=== PATIENT | female | born 1970 | race Caucasian/White ===

== ENCOUNTER 2024-09-14 08:28 | Outpatient (REF) | payer OTHER, SELFPAY ==
--- OUTSIDE RECORDS SUMMARY | 2024-09-14 08:33 | XMS_ITS | Patient Health Record ---
Author Organization [facility] Address [address] [place] [address] Reason For Referral No Information Plan Of Treatment No Information Insurance Providers Payer Name Payer Address Payer Phone Subscriber Number Group Number Insured Name Patient Relationship to Insured Coverage Start Date Coverage End Date Cigna [address] [place] [address] [id number] Dede Reed Self - patient is the insured
--- OUTSIDE RECORDS SUMMARY | 2024-09-14 08:33 | XMS_ITS | Data Portability ---
Author Organization [facility], [facility] Address [address] [place] [address] Care Team Providers Care Hall Porter Name Role Phone ANMOL SALAZAR Primary Care Provider Assessment Encounter Date Assessment Date Assessment LastModified by Organization Details LastModified Time 12/15/2022 12/15/2022 After a discussion of treatment options, which included consideration of best practices and patient preferences, the following treatment plan and objectives were adopted: [email or web address] Not available 12/15/2022 11:15:01 Plan of Treatment Reminders Order Date Submit Date Provider Last Modified By Organization Details Last Modified Time Details Appointments Follo w Up, 15 2024 09:30A M LAINE ARGUETA PA-C Not available Not available Not available Mammo Antoni dennison 2024 03:00P M [facility] Not available Not available Not available Medic al Manag ement 15 2025 03:00P M ANMOL SALAZAR NP Not available Not available Not available Lab FSH (foll icle- stimu latin g hormo ne), serum 2024 025 [facility], [place], [address], 09/10/2024 14:26:50 estra diol, serum 2024 025 [id number] [facility], [place], [address], 09/10/2024 14:26:58 lh (lute inizi ng hormo ne), serum 2024 025 [facility], [address] [facility], [place], [address], 07/31/2024 11:51:24 fecal occul t blood , immun oassa y, stool 2024 025 [facility], [address] [place] [address], [address], 07/31/2024 11:51:23 lipid panel , serum [address] [facility], [address] [place] [address] [place], [address], 09/10/2024 14:26:12 CMP, serum or plasm a [address] [facility], [address] [place] [address] [place], [address], 09/10/2024 14:26:30 HbA1c (hemo globi n A1c), blood [address] [facility], [address] [place] [address] [place], [address], 09/10/2024 14:26:39 drug scree n, urine - urine - caris oprod oL - last dose: 01/08 last dose time: 1:45p m 2023 024 [facility], [address] [place] [address], [address], 01/10/2024 10:33:59 drug scree n, urine - Date and Time of Last Dose: 2023 024 [facility], [address] [place] [place] [address], [address], 07/28/2023 12:48:32 fecal occul t blood , immun oassa y, stool [facility]23 [facility] [address] [place] [address], [address], 07/20/2024 09:26:53 drug scree n, urine - Time and Date of Last Dose: 12/15 @ 9:35a m 2022 023 [facility], [address] [place] [address], [address], 12/16/2022 12:49:30 caris oprod ol, quali tativ e, urine - temp 96 last dose caris oprod ol 10:30 AM 2022 023 [facility], [address] [place] [address], [address], 12/19/2022 09:03:40 Referral None recor ded. Procedures None recor ded. Surgeries None recor ded. Imaging None recor ded. Medication Orders estra diol 0.025 mg/24 hr semiw eekly trans derma l patch 2024 025 [id number] [id number], [address] [place], [address], 08/17/2024 15:19:08 prome thazi ne 25 mg table t 2023 024 [id number], [address] [place], [address], 01/09/2024 15:13:18 caris oprod ol 350 mg table t 2023 024 [id number] [id number], [address] [place], [address], 07/26/2024 19:34:23 caris oprod ol 350 mg table t 2022 023 [id number] [id number], [address] [place], [address], 07/26/2024 19:34:24 Patient TargetsNo targets recorded. Patient Instructions Encounter Date Encounter Id Patient Instructions Last Modified By Organization Details Last Modified Time 07/22/2023 [id number] My Health To Do List Specific Analgesia Plan: Continue present regimen Specific Goals for next visit increase exerciseThe patient is currently at their goal of safe, stable use of narcotic pain medication to improve their functioning in life. Since the last visit there has been no activity of concern: Patient today is at low risk for abuse of meds. Monitoring will include repeat UDS. Patients current goals of more activity were discussed with patient, unlikelihood of 100% reduction in pain made clear. Patient has read narcotics contract and understands the properties of narcotic medication. [email or web address] Not available 07/22/2023 14:16:24 01/09/2024 [id number] My Health To Do List Specific Analgesia Plan: Continue present regimen Specific Goals for next visit increase exerciseThe patient is currently at their goal of safe, stable use of narcotic pain medication to improve their functioning in life. Since the last visit there has been no activity of concern: Patient today is at low risk for abuse of meds. Monitoring will include repeat UDS. Patients current goals of more activity were discussed with patient, unlikelihood of 100% reduction in pain made clear. Patient has read narcotics contract and understands the properties of narcotic medication. [email or web address] Not available 12/22/2023 16:08:20 Reason for Referral None Reported. Results Created Date Observation Date Name Description Value Unit Range Abnormal Flag Note LastModifiedBy Organization Detail LastModifiedTime 12/16/1912/16/2022 DRUG MONIT OR, METHA DONE METAB , W/CON F, URINE methadone metabolite NEGATI VE NG/mL <100 normal Not Available [facility] [address] [place], [address], 12/16/2022 07:12:41 12/16/1912/16/2022 DRUG MONIT ORING TEMPL ATE notes and comments This drug testi ng is for medic al treat ment only. Ihsan sis was perfo rmed as non-f orens ic testi ng and these resul ts shoul d be used only by healt hcare provi ders to rende r diagn osis or treat ment, or to monit or progr ess of medic al condi tions . Healt herbert Provi ders needi ng Inter preta tion abhishekkusum du[place] us at 1.877 .40.R XTOX (1.87 [phone] ) M-F, 8am to 10pm EST Not Available [facility] [address] [place] [address], [place], [address], 12/16/2022 07:12:41 12/16/1912/16/2022 DRUG SCREE N-8, URINE , WITH CONFI RMATI ON GC/MS amphetamine NEG. negati ve Not Available [address], [address], 12/16/2022 12:49:30 12/16/1912/16/2022 DRUG SCREE N-8, URINE , WITH CONFI RMATI ON GC/MS barbiturates NEG. negati ve Not Available [address], [address], 12/16/2022 12:49:30 12/16/1912/16/2022 DRUG SCREE N-8, URINE , WITH CONFI RMATI ON GC/MS benzodiazepi ne NEG. negati ve Not Available [address], [address], 12/16/2022 12:49:30 12/16/1912/16/2022 DRUG SCREE N-8, URINE , WITH CONFI RMATI ON GC/MS cocaine NEG. negati ve Not Available [address], [address], 12/16/2022 12:49:30 12/16/1912/16/2022 DRUG SCREE N-8, URINE , WITH CONFI RMATI ON GC/MS opiates NEG. negati ve Not Available [address], [address], 12/16/2022 12:49:30 12/16/19 23 12/16/2022 DRUG SCREE N-8, URINE , WITH CONFI RMATI ON GC/MS fentanyl NEG. negati ve Syva EMIT II Limit s of Detec tion (cutt -off value s) Jose Expan d: Amphe tamin es: 1000 ng/ml Opiat es: 300 ng/ml Sara tuate s: 200 ng/ml Oxyco done 100 ng/ml Benzo diaze pines : 200 ng/ml Metha done 300 ng/ml Cocai ne: 300 ng/ml Fenta nyl 1 ng/ml Not Available [address], [address], 12/16/2022 12:49:30 12/16/1912/16/2022 DRUG SCREE N-8, URINE , WITH CONFI RMATI ON GC/MS oxycodone NEG. negati ve Not Available [address], [address], 12/16/2022 12:49:30 12/16/19 23 12/19/2022 DRUG TOX MONIT ORING CARIS OPROD OL MET, QN U meprobamate >22590 NG/mL <1000 high See Note 1 Not Available [facility] [address], [address], 12/19/2022 09:03:40 12/16/1912/19/2022 DRUG TOX MONIT ORING CARIS OPROD OL MET, QN U Unknown Analyte See Note 2 Note 1 This test was devel oped and its ihsan tical perfo rmanc e toni cteri stics have been deter mined by [facility]. It has not been clear ed or appro ameena by the FDA. This assay has been valid ated pursu ant to the CLIA regul ation s and is used for clini alonso purpo ses. Note 2 This drug testi ng is for medic al treat ment only. Ihsan sis was perfo rmed as non-f orens ic testi ng and these resul ts shoul d be used only by healt hcare provi ders to rende r diagn osis or treat ment, or to monit or progr ess of medic al condi tions . For abhishek chase with inter preti ng these drug resul ts, pleas e conta ct a [facility] Toxic ology Speci alist : 1-877 -40-R X TOX ( [phone] ), M-F, 8am-6 pm EST. Not Available [facility] [address] [place] [address], [place], [address], 12/19/2022 09:03:40 07/22/19 24 07/28/2023 DRUG SCREE N-8, URINE , WITH CONFI RMATI ON GC/MS amphetamine NEG. negati ve Not Available [address], [address], 07/28/2023 12:48:32 07/22/19 24 07/28/2023 DRUG SCREE N-8, URINE , WITH CONFI RMATI ON GC/MS barbiturates NEG. negati ve Not Available [address], [address], 07/28/2023 12:48:32 07/22/19 24 07/28/2023 DRUG SCREE N-8, URINE , WITH CONFI RMATI ON GC/MS benzodiazepi ne NEG. negati ve Not Available [address], [address], 07/28/2023 12:48:32 07/22/19 24 07/28/2023 DRUG SCREE N-8, URINE , WITH CONFI RMATI ON GC/MS cocaine NEG. negati ve Not Available [address], [address], 07/28/2023 12:48:32 07/22/19 24 07/28/2023 DRUG SCREE N-8, URINE , WITH CONFI RMATI ON GC/MS opiates NEG. negati ve Not Available [address], [address], 07/28/2023 12:48:32 07/22/19 24 07/28/2023 DRUG SCREE N-8, URINE , WITH CONFI RMATI ON GC/MS methadone NEG. negati ve Not Available [address], [address], 07/28/2023 12:48:32 07/22/19 24 07/28/2023 DRUG SCREE N-8, URINE , WITH CONFI RMATI ON GC/MS fentanyl NEG. negati ve Syva EMIT II Limit s of Detec tion (cutt -off value s) Door Expan d: Amphe tamin es: 1000 ng/ml Opiat es: 300 ng/ml Sara tuate s: 200 ng/ml Oxyco done 100 ng/ml Benzo diaze pines : 200 ng/ml Metha done 300 ng/ml Cocai ne: 300 ng/ml Fenta nyl 1 ng/ml Not Available [address], [address], 07/28/2023 12:48:32 07/22/19 24 07/28/2023 DRUG SCREE N-8, URINE , WITH CONFI RMATI ON GC/MS oxycodone NEG. negati ve Not Available [address], [address], 07/28/2023 12:48:32 01/09/20 24 01/10/2024 DRUG SCREE N-8, URINE , WITH CONFI RMATI ON GC/MS amphetamine NEG. negati ve Not Available [address], [address], 01/10/2024 10:33:59 01/09/20 24 01/10/2024 DRUG SCREE N-8, URINE , WITH CONFI RMATI ON GC/MS barbiturates NEG. negati ve Not Available [address], [address], 01/10/2024 10:33:59 01/09/20 24 01/10/2024 DRUG SCREE N-8, URINE , WITH CONFI RMATI ON GC/MS benzodiazepi ne NEG. negati ve Not Available [address], [address], 01/10/2024 10:33:59 01/09/20 24 01/10/2024 DRUG SCREE N-8, URINE , WITH CONFI RMATI ON GC/MS cocaine NEG. negati ve Not Available [address], [address], 01/10/2024 10:33:59 01/09/20 24 01/10/2024 DRUG SCREE N-8, URINE , WITH CONFI RMATI ON GC/MS opiates NEG. negati ve Not Available [address], [address], 01/10/2024 10:33:59 01/09/20 24 01/10/2024 DRUG SCREE N-8, URINE , WITH CONFI RMATI ON GC/MS methadone NEG. negati ve Not Available [address], [address], 01/10/2024 10:33:59 01/09/20 24 01/10/2024 DRUG SCREE N-8, URINE , WITH CONFI RMATI ON GC/MS fentanyl NEG. negati ve Syva EMIT II Limit s of Detec tion (cutt -off value s) Door Expan d: Amphe tamin es: 1000 ng/ml Opiat es: 300 ng/ml Sara tuate s: 200 ng/ml Oxyco done 100 ng/ml Benzo diaze pines : 200 ng/ml Metha done 300 ng/ml Cocai ne: 300 ng/ml Fenta nyl 1 ng/ml Not Available [address], [address], 01/10/2024 10:33:59 01/09/20 24 01/10/2024 DRUG SCREE N-8, URINE , WITH CONFI RMATI ON GC/MS oxycodone NEG. negati ve Not Available Located Within [facility] [address] [facility], [place], [address], 01/10/2024 10:33:59 02/03/20 24 02/03/2024 MAMMO , scree maxime, tomos ynthe sis, bilat eral MAMMO, SCREEN , LUKE, BILAT: 024. BI-RAD S: 1 CLINIC AL: 53-yea r old Female for Bilate ral Screen ing Mammog jason. Tyrer- zick lifeti me risk of 15.2%. No person al or first- degree family histor y of breast cancer . The patien t had a prior right breast biopsy . PRIOR EXAMS: Multip le prior studie s back throug h 2017. MAMMOG SEAN TECHNI QUE: 3D mammog sean (tomos ynthes is) and 2D mammog sean (C-vie w) images are genera naya. Images review ed with a CAD system . DENSIT Y C. The breast s are hetero geneou sly dense, which may obscur e small masses . MAMMOG SEAN FINDIN GS Bilate ral: No suspic ious mass, asymme try, microc alcifi cation , or other abnorm ality seen. CONCLU SIONNo eviden ce of malign sancho. RECOMM ENDATI ONS Bilate ralAnn ual screen ing mammog sean. ADMINI STRATI VE: A lay summar y was mailed to your patien t indica ting the result s and recomm endati ons for follow -up. OVERAL L ASSESS MENT CATEGO RY BI-RAD S-1: Negati ve. The [employer] o[employer] recomm ends annual screen ing mammog sean beginn ing at age 40 for women with averag e risk of breast cancer . ELECTR ONICAL LY SIGNED : Salazar Plasencia ms, M.D. on 2023 at 04:41: 23 PM Julio César Bruno jose: Salazar Plasencia ms [facility] [address], [place], [address], 02/06/2024 08:24:08 Result Notes Documentation Provider Name and Address Organization Details Recorded Time Mammo, Screening, Tomosynthesis, Bilateral : MAMMO, SCREEN, LUKE, BILAT: 02/03/2024. BI-RADS: 1 CLINICAL: 53-year old Female for Bilateral Screening Mammogram. Tyrer-Cuzick lifetime risk of 15.2%. No personal or first-degree family history of breast cancer. The patient had a prior right breast biopsy. PRIOR EXAMS: Multiple prior studies back through 2018. MAMMOGRAPHY TECHNIQUE: 3D mammography (tomosynthesis) and 2D mammography (C-view) images are generated. Images reviewed with a CAD system. DENSITY C. The breasts are heterogeneously dense, which may obscure small masses. MAMMOGRAPHY FINDINGS Bilateral: No suspicious mass, asymmetry, microcalcification, or other abnormality seen. CONCLUSIONNo evidence of malignancy. RECOMMENDATIONS BilateralAnnual screening mammography. ADMINISTRATIVE: A lay summary was mailed to your patient indicating the results and recommendations for follow-up. OVERALL ASSESSMENT CATEGORY BI-RADS-1: Negative. The [employer] recommends annual screening mammography beginning at age 40 for women with average risk of breast cancer. ELECTRONICALLY SIGNED: Benito Tobin M.D. on 02/03/2024 at 04:41:23 PM Reading Physician: Benito Jauregui RN [facility], [facility] 02/06/2024 08:24:08 Problems Name Problem SNOMED Code Status Onset Date Resolution Date Notes Provider Name and Address Organization Details Recorded Time Lateral epicondyli tis 803101842 Completed 12/21/2010 Not Available [facility] 3 03:10:23 Herpes simplex 77492327 Active Not Available [facility] 3 18:53:40 Increased frequency of urination 394876077 Completed 12/21/2010 Not Available [facility] 3 03:10:23 Ostium secundum type atrial septal defect 665406106 Completed 12/21/2010 Not Available [facility] 3 03:10:23 Kidney stone 22285455 Active Not Available [facility] 3 18:53:40 Migraine with aura 9810624 Active Not Available [facility] 3 18:53:40 Migraine with aura 3860740 Completed 199912/21/2010 Not Available [facility] 3 03:10:23 Low back pain 727824549 Active 2000 Not Available [facility] 3 18:53:40 Sciatica 48701156 Active 2000 Not Available [facility] 3 18:53:40 Backache 634933004 Completed 200012/21/2010 Not Available [facility] 3 03:10:23 Vaginitis and vulvovagin itis Completed 200112/21/2010 Not Available [facility] 3 03:10:23 Right upper quadrant pain 187312492 Completed 200112/21/2010 Not Available [facility] 3 03:10:23 Right lower quadrant pain 836917203 Completed 200112/21/2010 Not Available [facility] 3 03:10:23 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 962133463 Active 2002 Not Available [facility] 3 18:53:40 Malaise and fatigue 508276379 Completed 200212/21/2010 Not Available [facility] 3 03:10:23 Pure hyperchole sterolemia 228814515 Completed 200212/21/2010 Not Available [facility] 3 03:10:23 Acute cystitis 38047914 Completed 200212/21/2010 Not Available [facility] 3 03:10:23 Pain of multiple joints 04787245 Completed 200212/21/2010 Not Available [facility] 3 03:10:23 Primary fibromyalg ia syndrome 94043779 Completed 200212/21/2010 Not Available [facility] 3 03:10:23 Glycosuria 28855100 Completed 200212/21/2010 Not Available [facility] 3 03:10:23 Polyuria 76792438 Completed 200212/21/2010 Not Available [facility] 3 03:10:23 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 771438555 Completed 200212/21/2010 Not Available [facility] 3 03:10:23 Benign neoplasm of skin of upper limb and shoulder Completed 200312/21/2010 Not Available [facility] 3 03:10:23 Abdominal pain 42371833 Completed 200312/21/2010 Not Available [facility] 3 03:10:23 Cyst of ovary 31387369 Completed 200312/21/2010 Not Available [facility] 3 03:10:23 Headache 89734602 Completed 200412/21/2010 Not Available [facility] 3 03:10:23 Dysmenorrh ea 158046559 Completed 200412/21/2010 Not Available [facility] 3 03:10:23 Generalize d abdominal pain 860825939 Completed 200512/21/2010 Not Available [facility] 3 03:10:23 Liver function tests outside reference range 743593281 Completed 200512/21/2010 Not Available [facility] 3 03:10:23 Epigastric pain 30422820 Completed 200512/21/2010 Not Available [facility] 3 03:10:23 Palpitatio ns 16312909 Completed 200612/21/2010 Not Available [facility] 3 03:10:23 Irregular periods 37108894 Completed 200712/21/2010 Not Available [facility] 3 03:10:23 Cystitis 52003475 Completed 200812/21/2010 Not Available [facility] 3 03:10:23 Problem Notes None recorded. Procedures Surgical History Date Name Laterality Status Provider Name and Address Organization Details Recorded Time 3 COPD Screening Questions completed Juan Luis Castañeda [facility] 02/15/2023 15:32:44 3 COPD Screening Questions completed Juan Luis Castañeda [facility] 04/28/2022 14:26:43 2 prevention-ruddy al alcohol misuse screening completed Tiera Ralph PA-C [address] [place] [address], [phone], [facility] 04/30/2021 08:03:49 0 prevention-card iovascular risk reduction counseling completed Yamel Chaves MA [facility] 01/09/2020 08:28:38 0 prevention-ruddy al alcohol misuse screening completed Yamel Chaves MA [facility] 01/09/2020 08:28:38 Imaging Results None recorded. Procedure Notes None recorded. Medical Equipment None Reported. Allergies Allergen ID Allergen Name Allergen Category Reaction Reaction Severity Criticality Documentation Date Start Date Code Code System Note Provider Name and Address Organization Details Recorded Time 03136 acetamino phen / hydrocodo ne medicatio n nausea vomiting Not available Not available Not available 07/29/2008 78852 2 RxNorm Not Available [facility] 1 06:05:20 09754 cortisone medicatio n other mild Not available 07/29/2008 2878 RxNorm Not Available [facility] 1 06:05:20 04438 morphine medicatio n nausea vomiting Not available Not available Not available 07/29/2008 7052 RxNorm Not Available [facility] 1 06:05:41 98018 acetamino phen / oxycodone medicatio n nausea vomiting Not available Not available Not available 07/29/2008 58825 3 RxNorm Not Available [facility] 1 06:05:20 983811 Compazine medicatio n other moderate Not available 06/13/201965005 6 RxNorm [place]aw Yamel Chaves MA null, [facility] 0 11:49:04 Medications Name Sig Start Date Stop Date Status Note LastModified by Organization Details LastModified Time carisoprod ol 350 mg tablet TAKE 1 TAB 4 TIMES A DAY FOR 28 DAYS 2024 active CSRP - TO FILL 5 Not Available Not Available Not Available desoximeta sone 0.05 % topical cream APPLY TO THE AFFECTED AREA DIRECTED daily 02/27 completed Not Available Not Available Not Available trazodone 50 mg tablet TAKE 1/2-1 TABLET BY MOUTH AT BEDTIME NEEDED active Not Available Not Available No t Available aspirin 325 mg tablet Take 1 tablet every day by oral route. 06/12 completed Not Available Not Available Not Available fluocinolo ne 0.01 % topical cream APPLY TO AFFECTED AREA TWICE A DAY *DO NOT USE ON FACE* active Not Available Not Available No t Available metaxalone 400 mg tablet Please specify directio ns, refills and quantity active Not Available Not Available No t Available ciprofloxa nate 250 mg tablet TAKE 1 TABLET BY MOUTH TWICE A DAY FOR 5 DAYS. 06/12 completed PRN for travel Not Available Not Available Not Available acyclovir 400 mg tablet TAKE 1 TABLET BY MOUTH TWICE A DAY active PRN Not Available Not Available No t Available promethazi ne 25 mg tablet TAKE 1 TABLET BY MOUTH TWICE A DAY NEEDED FOR 10 DAYS active Not Available Not Available No t Available omeprazole 20 mg capsule,de layed release 12/16 completed 1 daily Not Available Not Available Not Available hydroxyzin e HCl 25 mg tablet TAKE 1 TABLET BY MOUTH AT BEDTIME NEEDED FOR ANZIETY/ INSOMNIA 04/27 completed Not Available Not Available Not Available aspirin 81 mg tablet active take 1 tab QD Not Available Not Available Not Available Iophen C-NR 10 mg-100 mg/5 mL oral liquid TAKE 1 OR 2 TEASPOON S BY MOUTH EVERY 4 HOURS NEEDED FOR COUGH 03/26 completed Not Available Not Available Not Available Transderm- Scop 1 mg over 3 days transderma l patch Apply 1 patch every 72 hours by transder mal route. active Not Available Not Available No t Available sertraline 50 mg tablet 1/2 TAB PO DAILY X 1 WEEK, THEN 1 PO DAILY 2008 active Not Available Not Available Not Avai lable doxycyclin e hyclate 100 mg tablet active Not Available Not Available Not Available naproxen 500 mg tablet Take 1 tablet twice a day by oral route as needed for 14 days. 11/08 completed Not Available Not Available Not Available estradiol 0.025 mg/24 hr semiweekly transderma l patch APPLY 1 PATCH TRANSDER ROSE TWICE A WEEK 2024 active Not Available Not Available Not Avai lable Adult Low Dose Aspirin 81 mg tablet,del ayed release Take 1 tablet every day by oral route. 04/27 completed Not Available Not Available Not Available Vitamin B12 500 mcg tablet Take 1 tablet every day by oral route. active Not Available Not Available No t Available coal tar 10 % topical cream 02/27 completed Not Available Not Available Not Available Quyen's wort active take 1 tab QD Not Available Not Available Not Available Vitamin D active Uses in winter Not Available Not Available Not Available multivitam in active take 1 daily Not Available Not Available Not Available Laine 0.35 mg tablet take 1 tablet daily by oral route active Not Available Not Available No t Available Fluvirin 9595-8687 45 mcg (15 mcg x 3)/0.5 mL intramuscu lar suspension ADM 0.5ML UTD active Not Available Not Available No t Available Afluria ( PF) 45 mcg (15 mcg x 3)/0.5 mL intramuscu lar syringe TO BE ADMINIST ERED BY [employer] FOR IMMUNIZA TION active Not Available Not Available No t Available naloxone 4 mg/actuati on nasal spray ADMINIST ER 1 SPRAY INTO ONE NOSTRIL. CALL 911. REPEAT AFTER 2-3 MIN IF NO OR MINIMAL RESPONSE active Not Available Not Available No t Available Flucelvax Quad (PF) 60 mcg (15 mcg x 4)/0.5 mL IM syringe TO BE ADMINIST ERED BY [email or web address] FOR IMMUNIZA TION 06/12 completed Not Available Not Available Not Available Vitals Date Recorded Body height Body mass index (BMI) Body weight Heart rate Oxygen saturation Oxygen saturation in Arterial blood by Pulse oximetry Systolic And Diastolic Provider Name and Address Organization Details Last Updated DateTime 4 153.67 cm 22.3 kg/m2 97705.7 1 g 90 /min 99 % 99 % 122/72 mm[Hg] Diana Pinto [facility] 4 14:21:20 Date Recorded Body height Body mass index (BMI) Body weight Oxygen saturation Oxygen saturation in Arterial blood by Pulse oximetry Heart rate Systolic And Diastolic Provider Name and Address Organization Details Last Updated DateTime 5 152.4 cm 23.5 kg/m2 43129.4 8 g 98 % 98 % 78 /min 124/64 mm[Hg] Amanda Up [facility] 5 14:38:27 Date Recorded Body height Body mass index (BMI) Body weight Oxygen saturation Oxygen saturation in Arterial blood by Pulse oximetry Heart rate Systolic And Diastolic Provider Name and Address Organization Details Last Updated DateTime 3 153.67 cm 23 kg/m2 23959.0 8 g 98 % 98 % 86 /min 108/62 mm[Hg] Castillo Cedillo MA [facility] 3 11:03:03 Date Recorded Body height Body mass index (BMI) Body weight Heart rate Systolic And Diastolic Provider Name and Address Organization Details Last Updated DateTime 01/09/2024 153.67 cm 22.9 kg/m2 18865.59 g 82 /min 130/74 mm[Hg] Maryam Collins [facility] 01/09/2024 14:36:46 Date Recorded Body height Body mass index (BMI) Body weight Oxygen saturation Oxygen saturation in Arterial blood by Pulse oximetry Heart rate Systolic And Diastolic Provider Name and Address Organization Details Last Updated DateTime 3 153.67 cm 22.7 kg/m2 67232.9 g 99 % 99 % 90 /min 128/76 mm[Hg] SMOOTH Bunch [facility] 3 15:33:45 Social History Question Answer Notes LastModified by Organizat ion Details LastModified Time Tobacco Smoking Status Former Smoker Quit 1997 after 5 yrs <1ppd. Diana Pinto MA [facility] 07/22/2023 14:19:33 Do You Wear A Helmet When Biking? Yes [email or web address] Information not available 07/20/2018 What Is Your Level Of Caffeine Consumption? Moderate Information not available 11/22/2014 What Type Of Diet Are You Following? REGULAR High Fiber, Low Fat [email or web address] Information not available 07/29/2008 Education 2 Year College Information not available 11/22/2014 What Is The Highest Grade Or Level Of School You Have Completed Or The Highest Degree You Have Received? [id number] Information not available 04/27/2021 Have There Been Any Changes To Your Family Or Social Situation? No [email or web address] Information not available 07/22/2023 When Did You Quit Smoking? 16+yearssin tali [email or web address] Information not available 04/27/2021 How Many Days In The Past Year Have You Had A Heavy Drinking Consumption (4+ Female, 5+ Male)? 0 Information not available 03/26/2016 Are There Any Guns Present In Your Home? No Information not available 04/27/2021 Do You Use Insect Repellent Routinely? Yes Summer Information not available 04/27/2021 Live Alone Or With Others? With Others [email or web address] Information not available 01/14/2011 CSRP - Narcotics Yes CARISOPRODOL [email or web address] Information not available 10/16/2021 CSRP Contract Signed And Discussed Yes 10/08/2021 Information not available 10/16/2021 Patient Has Health Care Proxy Signed And In Chart Yes [email or web address] Information not available 04/03/2020 Marital Status DBA_PATCH_ [email or web address] 117 Information not available 01/14/2011 Mosquito Repellent Used Routinely Yes Information not available 11/22/2014 What Was The Date Of Your Most Recent Tobacco Screening? 07/27/2024 [email or web address] Information not available 07/27/2024 How Many Children Do You Have? 0 [email or web address]_[email or web address] Information not available 01/14/2011 What Is Your Relationship Status? Information not available 04/27/2021 Do You Use Your Seat Belt Or Car Seat Routinely? Yes Information not available 04/27/2021 Seat Belts Used Routinely Yes [email or web address] Information not available 01/14/2011 Are You Sexually Active? Yes [email or web address] Information not available 07/22/2023 Smoke Alarm In Home Yes Information not available 11/22/2014 Do You Have Smoke And Carbon Monoxide Detectors In Your Home? Yes [email or web address] Information not available 07/22/2023 Are You Passively Exposed To Smoke? No Information not available 04/27/2021 How Much Tobacco Do You Smoke? 3+ PPD Information not available 04/27/2021 General Stress Level Medium Low - Medicum Information not available 11/22/2014 Do You Use Sunscreen Routinely? Yes [email or web address] Information not available 01/14/2011 How Many Days In The Past Year Have You Consumed 4 Or More Drinks? 0 Information not available 04/27/2021 Sex: Female Functional Status Question Answer Note LastModified by Organizat ion Details LastModified Time Do you use any illicit or recreational drugs? No Information not available 04/27/2021 Do you or have you ever used any other forms of tobacco or nicotine? No Information not available 04/27/2021 What is your level of alcohol consumption? Occasional social use only [email or web address] Information not available 07/22/2023 Do you or have you ever used smokeless tobacco? Never used smokeless tobacco Information not available 04/27/2021 Are you currently employed? 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 Never used electronic cigarettes Information not available 04/27/2021 What is your exercise level? Moderate 3-4 times/wk Information not available 04/27/2021 Mental Status None recorded. Family History Nothing Reported Notes:Ischemic: paternal gra ndfather at 50. Hypertension paternal grandfather, mother. Stroke: maternal grandmother. Diabetes: maternal grandmother, MOM Cancer: paternal grandmother lung (smoker). FATHER HAD MALIGNANT MELANOMA. HAD MALIGNANT LUNG MASS REMOVED THAT WAS NOT PRIMARY LUNG. MAUNT GASTRIC CA Colon polyps none. Malignant melanoma: father. Hyperlipidemia: paternal grandfather, mother. Osteoporosis: father. Medical History No medical history recorded. Gynecological History Statement/Question Response Menses Monthly Y History of Abnormal Pap Y Date of LMP 04/08/2021 Frequency of Cycle (Q days) 21 Obstetrics History GPAL:G 0 P 0 0 0 0 Immunizations Vaccine Type Date Status Note Provider Name and Address Organization Details Recorded Time Influenza, split virus, trivalent, preservative 011 completed Not Available [facility] 03/17/2019 02:38:55 Td(adult) unspecified formulation 007 completed Not Available [facility] 01/17/2023 18:53:41 Tdap 013 completed Not Available [facility] 03/17/2019 02:32:58 pneumococcal polysaccharide PPV23 014 completed Not Available [facility] 03/17/2019 02:28:11 Influenza, split virus, trivalent, preservative 013 completed Not Available [facility] 01/17/2023 18:53:41 Influenza, split virus, trivalent, preservative 013 completed Not Available [facility] 01/17/2023 18:53:41 Influenza, split virus, quadrivalent, PF 018 completed Not Available [facility] 03/17/2019 02:28:44 Influenza, split virus, quadrivalent, PF 019 completed Not Available [facility] 03/17/2019 02:24:07 Influenza, split virus, quadrivalent, preservative 020 completed Not Available [facility] 01/17/2023 18:53:41 COVID-19, mRNA, LNP-S, PF, 100 mcg/0.5mL dose or 50 mcg/0.25mL dose 021 completed Not Available [facility] 01/17/2023 18:53:41 Td (adult), 2 Lf tetanus toxoid, preservative free, adsorbed 023 cancelled patient objection DAVID DOOLEY PA-C [address] [place] [address], [phone], [facility] 04/28/2022 21:04:08 COVID-19, mRNA, LNP-S, PF, 100 mcg/0.5mL dose or 50 mcg/0.25mL dose 021 completed Not Available [facility] 01/17/2023 18:53:41 Td (adult), 2 Lf tetanus toxoid, preservative free, adsorbed 023 completed DAVID DOOLEY PA-C [address] [place] [address], [phone], [facility] 11/12/2022 07:51:45 influenza, intradermal, quadrivalent, preservative free 021 completed Not Available [facility] 01/17/2023 18:53:41 COVID-19, mRNA, LNP-S, PF, 100 mcg/0.5mL dose or 50 mcg/0.25mL dose 021 completed Not Available [facility] 01/17/2023 18:53:41 Influenza, MDCK, quadrivalent, PF 022 completed Not Available [facility] 01/17/2023 18:53:41 COVID-19, mRNA, LNP-S, bivalent, PF, 50 mcg/0.5 mL or 25mcg/0.25 mL dose 022 completed Not Available [facility] 01/17/2023 18:53:41 zoster recombinant 024 completed SMOOTH Bunch [facility] 06/07/2023 10:10:36 COVID-19, mRNA, LNP-S, bivalent, PF, 50 mcg/0.5 mL or 25mcg/0.25 mL dose 024 [facility] 08:04:29 Influenza, MDCK, trivalent, preservative 024 completed [facility] 02/06/2024 09:51:56 Past Encounters Encounter ID Performer Location Encounter Start Date Encounter Closed Date Diagnosis/Indication Diagnosis SNOMED-CT Code Diagnosis ICD10 Code Diagnosis Note [id number] Stefany Royal MD , [facility] OFFICE [address] [place] [address] 01/28/2000 11:30:00 03/20/2008 02:02:29 [id number] Shin Moreira MD , [facility], OFFICE [address] [place] [address] 1 11/16/2000 16:45:00 03/20/2008 02:02:29 [id number] Shin Moreira MD , [facility], OFFICE [address] [place] [address] 1 11/21/2000 15:30:00 03/20/2008 02:02:29 [id number] Amanda Nettles Physical Therapy, [facility] [address] [facility] [place] [address] 11/28/2000 17:00:00 03/20/2008 02:02:29 [id number] Shin Moreira MD , [facility], OFFICE [address] [place] [address] 1 11/28/2000 15:30:00 03/20/2008 02:02:29 [id number] Amanda Nettles Physical Therapy, [facility] [address] [facility] [place] [id number] 12/05/2000 17:00:00 03/20/2008 02:02:29 [id number] Amanda Nettles Physical Therapy, [facility] [address] [place] [address] 12/07/2000 17:00:00 03/20/2008 02:02:29 [id number] Amanda Nettles Physical Therapy, [facility] [address] [place] [address] 12/12/2000 15:30:00 03/20/2008 02:02:29 [id number] Shin Moreira MD FP, [facility], OFFICE [address] [place]yn[place] [address] 12/12/2000 16:00:00 03/20/2008 02:02:29 [id number] Amanda Nettles Physical Therapy, [facility] [address] [place] [address] 01/02/2001 15:00:00 03/20/2008 02:02:29 [id number] Shin Moreira MD FP, [facility], OFFICE [address] [place] [address] 01/13/2001 15:45:00 03/20/2008 02:02:29 [id number] [facility] ULTRASOUND Technologi st Radiology , [facility] [address] [place] [address] 01/23/2001 13:30:00 03/20/2008 02:02:29 [id number] [facility] ULTRASOUND Technologi st Radiology , [address] [place] [address] 01/23/2001 12:45:00 03/20/2008 02:02:29 [id number] Amanda Nettles Physical Therapy, [facility] [address] [place] [address] 1 01/30/2001 17:30:00 03/20/2008 02:02:29 [id number] Stefany Mario FP, [facility], OFF[address] P[place]ynthia [place] [id number] 03/23/2001 15:15:00 03/20/2008 02:02:29 [id number] Stefany Royal MD , [facility], OFFICE [address] [place] [address] 10/05/2001 14:54:28 03/20/2008 02:02:29 [id number] [facility] ULTRASOUND Technologi st Radiology , [facility] [address] [place] [address] 1 10/20/2001 08:35:15 03/20/2008 02:02:29 [id number] Shin Moreira MD , [facility], OFFICE [address] [place] [address] 1 03/16/2002 16:10:25 03/20/2008 02:02:29 [id number] Shin Moreira MD , [facility], OFFICE [address] [place] [address] 04/16/2002 10:13:25 03/20/2008 02:02:29 [id number] [facility] LAB LAB - [address] [place] [address] 04/16/2002 14:15:26 03/20/2008 02:02:29 [id number] Tona De Anda MD , [facility], OFFICE [address] [place] [address] 07/26/2002 10:32:47 03/20/2008 02:02:29 [id number] [facility] - [address] [place] [address] 07/26/2002 00:00:00 03/20/2008 02:02:29 [id number] [facility] - [address] [place] [address] 11/08/2002 15:36:43 11/09/2002 12:08:24 [id number] Shin Moreira MD , [facility], OFFICE [address] [place] [address] 11/08/2002 14:47:34 11/09/2002 10:26:55 [id number] Derek Woo PA-C , [facility], OFFICE [address] [place] [address] 01/08/2003 13:00:52 01/09/2003 10:38:55 [id number] [facility] - [address] [place] [address] 01/08/2003 00:00:00 03/20/2008 02:02:29 [id number] [facility] - [address] [place] [address] 01/17/2003 07:34:33 01/17/2003 12:07:38 [id number] [facility] - [address] [place] [address] 04/12/2003 07:31:20 04/12/2003 12:56:20 [id number] MD SHANON Womack, [facility], OFFICE [address] [place] [address] 05/06/2003 15:39:30 05/07/2003 09:02:05 [id number] [facility] - [facility] [address] [place] [address] 10/28/2003 15:16:54 10/28/2003 15:58:25 [id number] MD SHANON Womack, [facility], OFFICE [address] [place] [id number] 10/28/2003 13:52:05 10/29/2003 09:25:18 [id number] [facility] ULTRASOUND Technologi st Radiology , [facility] [address] [place] [address] 12/23/2003 08:45:26 12/23/2003 11:28:43 [id number] [facility] ULTRASOUND Technologi st Radiology , [facility] [address] [place] [address] 02/18/2004 15:30:25 02/19/2004 08:13:34 [id number] MD SHANON Womack, [facility], OFFICE [address] [place] [id number] 06/26/2004 13:20:40 06/29/2004 09:19:09 [id number] SOLANGE Marks, [facility], OFFICE [address] [place] [address] 1 09/09/2004 09:36:12 09/09/2004 14:41:40 [id number] [facility] - [facility] [address] [facility] [place] [address] 09/09/2004 00:00:00 03/20/2008 02:02:29 [id number] MD SHANON Womack, [facility], OFFICE [address] [place] [address] 1 11/12/2004 14:36:18 11/13/2004 08:51:06 [id number] MD SHANON Womack, [facility], OFFICE [address] [place] [id number] 1 12/15/2004 10:08:30 12/16/2004 09:19:56 [id number] Aleah CLAUDIO, [facility], OFFICE [address] [place] [address] 1 03/04/2005 09:26:22 03/04/2005 14:59:07 [id number] [facility] RADIOLOGY Technologi Radiology , [facility] [address] [place] [address] 03/12/2005 10:26:54 03/12/2005 13:00:56 [id number] Aleah HERNANDEZ , [facility], OFFICE [address] [place] [address] 03/12/2005 09:47:10 03/12/2005 17:11:22 [id number] [facility] - [facility] [address] [place] [address] 04/27/2005 11:43:31 04/27/2005 11:43:41 [id number] Shin Moreira MD , [facility], OFFICE [address] [place]NTIVEROSBENJAMINCynthia [place] [address] 1 04/27/2005 10:09:33 04/28/2005 08:34:54 [id number] Shin Moreira MD , [facility], OFFICE [address] [place] [address] 09/29/2005 11:34:43 09/30/2005 07:51:03 [id number] Ernesto Angelo MD , [facility], OFFICE [address] [place]NTIVEROSBENJAMINCynthia [place] [address] 12/13/2005 14:28:41 12/14/2005 08:08:21 [id number] [facility] - [facility] [address] [place] [address] 12/13/2005 15:33:32 12/13/2005 15:33:54 [id number] Ernesto Angelo MD , [facility], OFFICE [address] [place]AM[place]yn[place] [address] 1 12/17/2005 13:17:14 12/20/2005 09:09:04 [id number] [facility] - [facility] [address] [place] [id number] 12/17/2005 00:00:00 03/20/2008 02:02:29 [id number] [facility] - [facility] [address] [place] [address] 12/17/2005 14:21:52 12/17/2005 14:28:32 [id number] MD SHANON Womack, [facility], OFFICE [address] [place] [id number] 05/17/2006 13:51:20 05/18/2006 07:47:36 [id number] MD SHANON Womack, [facility], OFFICE [address] [place] [address] 1 06/06/2006 16:26:15 06/07/2006 08:13:51 [id number] Shin Moreira MD , [facility], OFFICE [address] [place] [address] 1 03/28/2007 16:19:00 03/20/2008 02:02:29 [id number] [facility] - [address] [place] [address] 03/28/2007 00:00:00 03/20/2008 02:02:29 [id number] Shin Moreira MD , [facility], OFFICE [address] [place] [address] 1 07/29/2008 14:04:14 07/30/2008 10:31:34 [id number] MD SHANON Womack, [facility], OFFICE [address] [place] [address] 1 09/30/2008 15:57:36 10/02/2008 11:30:11 [id number] [facility] - [address] [place] [address] 09/30/2008 00:00:00 12/26/2008 02:00:52 [id number] [facility] - [address] [place] [address] 1 10/01/2008 07:25:53 10/07/2008 14:13:41 [id number] Antony Harrington PA-C , [facility], [address] [place] [address] 02/27/2009 09:59:47 02/27/2009 11:09:11 [id number] [facility] ULTRASOUND Technologi st Radiology , [address] [place] [address] 03/04/2009 10:41:14 03/06/2009 15:40:46 [id number] MD SHANON Womack, [facility], [address] [place] [address] 1 12/16/2009 13:17:26 12/17/2009 12:22:26 [id number] Lula Stevens, OT Physical Therapy, [address] [place] [address] 12/22/2009 16:26:32 12/23/2009 11:11:34 [id number] Lula Stevens, OT Physical Therapy, [address] [place] [address] 01/05/2010 16:36:11 01/06/2010 11:36:21 [id number] Shin Moreira MD , [facility], OFFICE [address] [place] [address] DR [place]NTIVEROSB[place]JAM[place]yn[place] [address] 12/22/2010 15:27:34 12/23/2010 09:37:50 [id number] Shin Moreira MD , [address] [place] [id number] 04/01/2011 15:36:51 04/01/2011 16:43:36 [id number] Shin Moreira MD , [facility] OFF[facility] [address] [place] [address] DR ONTIVEROSBENJAMINCynthia [place] [id number] 03/31/2012 10:33:06 03/31/2012 11:09:36 [id number] Gonzalo Henderson MD [facility] , [address] [place] [address] 03/31/2012 11:14:05 04/03/2012 09:52:27 [id number] Shin Moreira MD , [address] [place] [address] 04/10/2012 10:00:34 04/13/2012 12:15:04 [id number] Shin Moreira MD , [address] [place] [id number] 04/28/2012 13:56:46 04/28/2012 15:30:41 [id number] Shin Moreira MD , [facility], [address] [place] [address] 11/15/2013 15:11:03 11/15/2013 16:29:46 Adult health examination [id number] see Risk Assessment and Lifestyle Change Counseling section above Counseling [id number] Low back pain 490970745 Migraine with aura 6761082 Pain of sh oulder region 95567301 Administra tion of pneumococcal vaccine 13637473 [id number] Shin Moreira MD , [facility], [address] [place] [address] 12/13/2013 09:03:40 12/13/2013 09:50:41 Bronchitis 51688695 Cough 59330556 [id number] Shin Moreira MD , [address] [place] [address] 11/22/2014 14:11:10 11/22/2014 16:22:45 Adult health examination 670178667 see Risk Assessment and Lifestyle Change Counseling section above Counseling [id number] Screening mammography 35189279 Migraine with aura 1064104 [id number] Shin Moreira MD , [facility], OFFICE [address] [place] [address] 03/26/2016 15:18:25 03/29/2016 12:55:56 Adult health examination 944769285 Z00.00 see Risk Assessment and Lifestyle Change Counseling section above Counseling 263523346 Z71 .9 Abnormal c ervical Papanicolaou smear with human papillomavirus deoxyribonucleic acid detected 461019235 R87.619 Migraine with aura 76463 06 G43.109 Screening mammography 24 187536 Z12.31 Screening for malignant neoplasm of cervix 485004045 Z12.4 [id number] Shin Moreira MD , [facility], OFFICE [address] [place] [address] 04/05/2017 14:17:40 04/05/2017 15:34:50 Adult health examination 270606857 Z00.00 see Risk Assessment and Lifestyle Change Counseling section above Counseling 791582222 Z71 .9 Low back pain 558339473 M54.5 Migraine with aura 78348 06 G43.109 Active or passive immunization 115251758 Z23 Skin lesion 54041585 L98 .9 [id number] Shin Moreira MD , [facility], OFFICE [address] [place] [address] 1 07/20/2018 14:06:57 07/20/2018 15:05:45 Adult health examination 445267782 Z00.00 see Risk Assessment and Lifestyle Change Counseling section above Counseling 351486870 Z71 .9 Depression screening 171 064167 Z13.89 depression screening tool administer ed, entered into emr, scored and discussed, time greater than 7.5 minutes Abnormal c ervical Papanicolaou smear with human papillomavirus deoxyribonucleic acid detected 226677305 R87.619 Migraine with aura 37341 06 G43.109 Screening mammography 24 889614 Z12.31 [id number] Shin Moreira MD , [facility], OFFICE [address] [place] [address] 11/17/2018 14:04:46 11/17/2018 16:46:43 Active or passive immunization 079077182 Z23 [id number] JEAN CLAUDE Zaidi , [facility], OFFICE [address] [place] [address] 04/12/2019 15:04:39 04/12/2019 16:52:51 Awareness of heart beat 672088821 R00.2 EKG in office is normal, reviewed with Dr. Lainez.Du e to new onset of symptoms and hx of PFO, will send pt for echocardio gram.[place] ct she is experienci ng some PVCs.Will contact patient with results.Ca ll/RTO with any concerns. Patent foramen ovale 204 671759 Q21.1 Dx 15 years ago during work up for migraines. Was seen and evaulated by cardiology at that time. No further f/u since. [id number] Yovani Rodriguez MD , [facility], OFFICE [address] [place] [address] 06/13/2019 08:08:54 06/14/2019 15:01:57 Insomnia 559859850 G47.00 Trial of trazodone at bedtime. Reviewed R/B/A of meds. F/u 2 weeks, sooner with any concerns. Encouraged regular exercise. Stress and adjustment reaction 019001236 F43.9 Increased stress with current pandemic and trying to care for parents who are in [place] with medical issues. Will have her schedule with [facility] for additional support. Encouraged regular exercise and taking time for herself to decompress . [id number] Yovani Rodriguez MD , [facility] [place]ICE [address] [place] [address] 06/28/2019 07:45:36 06/28/2019 16:41:25 Insomnia [id number] G47.00 Trazodone felt too strong, left her groggy and with weird dreams even of half tab. Will try hydroxyzin e on a PRN basis. Work with therapist on stress management . Reviewed R/B/A of meds. F/u if no improvemen t in 2 weeks, sooner as needed. Encouraged regular exercise. Stress and adjustment reaction 335587993 F43.9 Increased stress with current pandemic and trying to care for parents who are in [facility] with medical issues. She mary get 6 free therapy sessions through work and is starting that next week. Limiting news and journaling has helped, as well as increased exercise. Encouraged regular exercise and taking time for herself to decompress . [id number] Yovani Rodriguez MD , [facility] OFFICE [address] [place] [address] 10/30/2019 08:46:21 10/30/2019 14:32:15 Palpitations 27662995 R00.2 Reviewed recent echo with patient. I suspect PVCs are what she is feeling. Will get updated labs and schedule nurse visit for holter monitor. F/u pending results. Discussed hydration, good sleep habits and limiting caffeine as well. [id number] Yovani Rodriguez MD , [facility] OFFICE [address] [place] [address] 11/12/2019 13:49:17 11/12/2019 14:36:14 Palpitations 86021784 R00.2 Reviewed recent echo with patient. I suspect PVCs are what she is feeling. Will get updated labs and schedule nurse visit for holter monitor. F/u pending results. Discussed hydration, good sleep habits and limiting caffeine as well. [id number] Yovani Rodriguez MD , [facility] OFFICE [address] [place] [address] 11/19/2019 10:25:18 11/21/2019 15:55:09 Macrocytosis - no anemia 887186263 D75.89 check labs in 1 month. Palpitations 54124752 R0 0.2 Reviewed labs and holter with patient. Discussed possibilit y of beta angela for symptomati c management . Await Dr. Ellsworth's reading of holter. Reassuranc e. Continue to stay well hydrated. Minimize caffeine and work on stress management . [id number] Yovani Rodriguez MD , [facility], OFFICE [address] [place] [address] 01/09/2020 10:39:14 01/09/2020 13:15:05 Adult health examination 922295105 Z00.00 Stable health. Continue to work on stress management , regular exercise and healthy diet. UTD on pap. Plans to get flu vaccine. Counseling 863021950 Z71 .9 including cardiovasc ular risk reduction counseling Depression screening 171 161111 Z13.89 09/23. Mood stable, increased stress with current pandemic. Feels she is managing ok. depression screening tool administer ed, entered into emr, scored and discussed, time greater than 7.5 minutes Screening for alcohol abuse 572157859 Z13.39 06/09. Encouraged to limit alcohol intake. Screening mammography 24 781466 Z12.31 Low back pain 453553349 M54.5 Chronic. On carisoprod ol. Reviewed R/B/A of long term care administrator use. Encouraged to cut back on dosing, will try to take 3x a day instead of 4x a day. Palpitations 28368336 R0 0.2 Reviewed holter results again with patient- PVCs. Discussed possibilit y of beta angela for symptomati c management , which she declines for now. Discussed hydration, quality sleep, limit caffeine and alcohol. [id number] Yovani Rodriguez MD , [facility], OFFICE [address] [place], [place] [address] 04/27/2021 13:15:26 04/27/2021 14:43:21 Adult health examination 565748525 Z00.00 Stable health. Continue to work on stress management , regular exercise and healthy diet.UTD on mammogram. Pap done today. UTD on immunizati ons Counseling 562022037 Z71 .9 Depression screening 171 430958 Z13.31 06/24 depression screening tool administer ed, entered into emr, scored and discussed, time greater than 7.5 minutes Screening for alcohol abuse 065381022 Z13.39 05/09. Screening for malignant neoplasm of colon 549019950 Z12.11 Declines colonoscop y- knows several people who have during routine colonoscop y. Willing to do stool cards. Screening for malignant neoplasm of cervix 204741962 Z12.4 Low back pain 660395402 M54.50 On penitentiary carisoprod ol. Has tried several options in the past including injections . Only med she has been able to tolerate. Encouraged to try to cut down to 3 tabs/day. Discussed not typically long term care administrator meds, however she is able to remain functional /active and working with med. Migraine with aura 37488 06 G43.109 FMLA recently completed for PRN use with dbilitatin g migraines. [id number] Janelle Iraheta . FP, [facility], OFFICE [address] [place] [address] 10/08/2021 10:21:14 10/08/2021 13:02:42 Chronic pain 21405913 R52 Pt states back pain began 2000, On penitentiary carisoprod ol.Has been able to remain functional /work with carisoprod ol 4x daily since around 2007Could not tolerate injections or other meds/opioi ds, this is the only thing pt can tolerate Discussed attempt to try to cut down to 3 tabs/day in the future, pt not ready at this time, is happy with functional statusCSRP contract signed in office today, Pt case to [facility] for enrollment and buccal swab pending [id number] Janelle Iraheta . , [facility], OFFICE [address] [place] [address] 01/14/2022 14:51:48 01/19/2022 08:35:42 Chronic pain 75066524 R52 Pt states back pain began 2000, On penitentiary carisoprod ol.Has been able to remain functional /work with carisoprod ol 4x daily since around 2007Could not tolerate injections or other meds/opioi ds, this is the only thing pt can tolerateOn CSRP, agree to q6 mo visits, pt given copy of contract as requested, has been having difficulty filling Rx at pharmacy and has to call each month and speak w/ pharmacist , asked pt to f/u w/ pharmacy about this issue, fill has been sent for 01/28/22, pt questions d/c CSRP as did not used to have this issue w/ refills, will advise if ongoing as discussed Ganglion c yst of right hand [id number] 44269 M67.441 Suspect ganglion cyst R 4th digit, also eval Dr. CARDENASt will monitor, consider hand surgeon referral if becomes bothersome [id number] Toney Art MD , [facility], [address] [place] [address] 04/23/2022 13:50:08 04/23/2022 15:33:24 Lateral epicondylitis of right humerus 7054769560 36267 M77.11 Discussed rest, activity modificati on reyna. computer mouse use, ice/heat applicatio n, and NSAID/acet aminophen dosing as needed unless contraindi cated.OOW note provided for 2 weeks.Disc ussed potential benefit of tennis elbow strap. [id number] Janelle Iraheta . , [facility], OFFICE [address] [place], [place] [address] 04/28/2022 13:49:39 04/29/2022 08:22:02 Adult health examination 241700027 Z00.00 Declines colonoscop y. Willing to do stool cards. Given todayPap UTD 03/2021Mamm o 03/2021, orderedDec lines tetanus today, will get next visit Depression screening 171 322930 Z13.31 depression screening tool administer ed, 05/24 Screening for alcohol abuse 058387060 Z13.39 Alcohol use screening tool administer ed, 04/11 Screening for malignant neoplasm of colon 412470947 Z12.11 Declines colonoscop y. Willing to do stool cards. Given today Active or passive immunization 884251526 Z23 Declines d/t current arm pain, states will get next time Lateral ep icondylitis of right humerus 5555619487 83500 M77.11 Seen in office approx 1 week ago, R arm pain ongoingly very bothersome Pt was recommende d rest/activ ity modificati on/ice/hea t, NSAID (naproxen) /acetamino phen and was given OOW note until 05/12/22Pt is starting PT on Tuesday w/ [facility]I Screening mammography 24 777126 Z12.31 Migraine with aura 91733 06 G43.109 Becoming more random/les s predictabl e? botox therapyRef er to neuro- dr torrez for options Chronic pain 83082585 R5 2 Pt states back pain began 2000, On penitentiary carisoprod ol.Has been able to remain functional /work with carisoprod ol 4x daily since around 2007Could not tolerate injections or other meds/opioi ds, this is the only thing pt can tolerateOn CSRP, continues to have difficulty filling Rx at pharmacy monthly and has to call each month and speak w/ pharmacist , request pt to f/u w/ pharmacy about this issue, pt questions d/c CSRP as did not used to have this issue w/ refills, will advise if ongoing as discussed, will need to discuss with CSRP [id number] Janelle Iraheta . MD CLAUDIO, [facility], [address] [place] [address] 05/06/2022 13:45:46 05/10/2022 13:30:24 Lateral epicondylitis of right humerus 4267054569 84995 M77.11 R arm pain ongoingly very bothersome C/t rest/activ ity modificati on/ice/hea t, NSAID (naproxen) /acetamino phen prnOOW note extended per request until session with PT on Tuesday w/ ATI, again today, c/tXray ordered to obtain due to immense pain if no improvemen t 1 weekPt will update on condition in approx 7-10 days [id number] Janelle Iraheta . , [facility], OFFICE [address] [place] [address] 11/08/2022 14:19:57 11/11/2022 07:59:07 Chronic pain 62330819 R52 Pt states back pain began 2000, On long term care administrator carisoprod ol.Has been able to remain functional /work with carisoprod ol 4x daily since around 2007Could not tolerate injections or other meds/opioi ds, this is the only thing pt can tolerateOn CSRP, UDS today Long-term current use of drug therapy 486240557 Z79.899 Active or passive immunization 046180894 Z23 Lateral ep icondylitis of right humerus 5490777686 01867 M77.11 Intermitte ntly bothersome , but no longer using naprosynst ill doing home exercises Ganglion c yst of right hand 0305155031 91858 M67.441 ResolvedR 4th digit [id number] MD SHANON Dow, [facility], OFFICE [address] [place] [address] 12/15/2022 10:47:42 12/15/2022 12:06:49 Low back pain 631908779 M54.50 On penitentiary carisoprod ol. Has tried several options in the past including injections . Only med she has been able to tolerate. Encouraged to try to cut down to 3 tabs/day. Discussed not typically long term care administrator meds, however she is able to remain functional /active and working with med. Chronic pain 73733918 R5 2 Pt states back pain began 2000, On long term care administrator carisoprod ol.Has been able to remain functional /work with carisoprod ol 4x daily since around 2007Could not tolerate injections or other meds/opioi ds, this is the only thing pt can tolerateOn CSRP.. repeat UDS today. Last test negative. Had taken meds early that morning of her visit.No other inappropri ate screens. Refilled today. F/u pending repeat UDS. Long-term current use of drug therapy 216519979 Z79.993 [id number] Yovani Rodriguez MD , [facility], OFFICE [address] [place] [address] 02/15/2023 15:24:37 02/15/2023 16:57:43 Migraine with aura 4518023 G43.109 FMLA completed for PRN use with debilitati ng migraines. Discussed option of seeing neuro for consult if symptoms/f rquency increase. [id number] Josefa Robles MD , [facility], OFFICE [address] [place] [address] 07/22/2023 14:06:11 07/22/2023 15:45:56 Adult health examination 195516142 Z00.00 -well 52 y/o F-vital signs stable-nor mal pap + neg. HPV 04/27/2021, due 2026-stool cards for colon cancer screening- mammogram 05/25/2022 New concern of L sided facial pain in conjunctio n with recent changes in migraine characteri stics. ? if new symptoms are related to changing migraines secondary to eric-menop ausal state. No evidence of ENT involvemen t or infection on exam. Due to experience of similar episode previously , monitor to assess if symptoms resolve on own. If pain is pervasive or progressiv e in nature - other accompanie d by other symptoms - f/u with [facility] office for further evaluation . Depression screening 171 018287 Z13.31 Given significan t changes in life over last few months, consider mental health support with therapeuti c interventi ons. If stress increases, recommend referral for psychologi c support. Long-term current use of drug therapy 427491844 Z79.899 Long-term current use of opiate analgesic drug 7535147785 41894 Z79.891 Reviewed CSRP contract during visit secondary to daily carisoprod ol use for back pain. Screening for malignant neoplasm of colon 700272395 Z12.11 [id number] Josefa Robles MD , [facility], [address] [place] [address] 01/09/2024 14:23:38 01/10/2024 08:02:11 Chronic pain 03097057 R52 Long-term current use of opiate analgesic drug 7730775311 65608 Z79.891 Reviewed CSRP contract during visit secondary to daily carisoprod ol use for back pain. Active or passive immunization 759946358 Z23 Flu - declinesSh ingles - reminded Screening for malignant neoplasm of colon 738896577 Z12.11 IFOBT given 07/22/23 Nausea 009312289 R11.0 -requestin g refill, uses mainly for motion sickness Low back pain 129506493 M54.50 Migraine 42596068 G43.90 9 -FMLA paperwork completed [id number] Av Mullins MD , [facility], [address] [place] [address] 07/27/2024 14:08:36 07/27/2024 15:14:57 Screening for malignant neoplasm of colon 973591063 Z12.11 You were given a stool kit today for Colorectal Cancer screening. Please review the instructio ns and return the kit to our office within 7 days. The kits so check the date before submitting the sample. Contact our office with any questions or concerns. Immunization due 7284855 08 Z23 Pneumo: aware to get at [facility] - pt states she received at [facility] in 202307/27/24 mp Adult heal th examination 385195286 Z00.00 -well 53 y/o F-vital signs stable-nor mal pap + neg. HPV 04/27/2021, due 2026-stool cards for colon cancer screening- mammogram completed 02/03/2024, due 01/2025 Depression screening 171 757706 Z13.31 depression screening tool administer ed Screening for alcohol abuse 269792255 Z13.39 Alcohol use screening tool administer ed Menopause finding 682721 006 N95.1 -discussed MHT start-she is already on daily POP, will add estradiol patch-[facility] candido hormone levels as well-f/u 4 weeks Health Concerns Section Related Observation LastModified by Organization Detai ls LastModified Time None Recorded Concern Status LastModified by Organization Details LastModified Time None Recorded Advance Directives Directive None Recorded Payers Insurance Date Sequence Insurance Name Policy Number Policy Arthur Covered Member ID Arthur Member ID Guarantor Name 09/13/2024 1 [employer] [id number] Dede Reed [id number] Dede Reed 01/02/2024 1 [facility] [id number] Dede Reed [id number] Dede Reed 01/02/2024 1 [facility] [id number] Dede Reed [id number] Dede Reed Notes Date Note Type Note Provider Name and Address Organization Details Recorded Time 12/15/2022 text/html Here today for refill of carisoprodol. UDS was negative for carisoprodol on last test. No other inappropriate tests.Had taken med earlier that morning- appt was in afternoon.Denies misuse of meds. Tiera Ralph PA-C [address] [place] [address], [phone], [facility] 12/15/2022 11:32:47 02/15/2023 text/html Here today to discuss FMLA paperwork. Needs updated for migraines. Has a couple a month. Lasts 1-2 hours to 3 days.Has to go to cold room with AC, biofreeze to forehead/neck. Tiera Ralph PA-C [address] [place] [address], [phone], [facility] 02/15/2023 16:23:05 07/22/2023 text/html Physical Exam/FemaleReported bypatient.PHAPatient is here for a Wellness Visit. She describes her health status as good. Patient's health is the same as last year.Risk Assessment and Lifestyle Change Counseling 18-50Reported bypatient.Coronary Artery Disease Risk Assesment:Family History of Coronary Artery Disease Breast Cancer Risk Assessment:No family history of breast cancer Lung Cancer Risk Assessment:Former smoker quit more than 15 years ago Diet:Counseled about eating a diet low in trans and saturated fats and high in fiber, fruits and vegetables Exercise counseling:Discussed the importance of daily physical activity; Discussed the importance of weight bearing exercise Family Planning:Using control Control Pills 07/22/23WV No changes since last wellness visit. Reports same chronic conditions: back pains even s/p back injections (6 places), migraine with visual photic auras (recognizes triggers, uses menthol roll-on rub which has been helpful). Believes she is entering menopause because the headache pain intensity is getting worse (as compared to 4 years ago), but frequency is unchanged. LMP was 05/18/23 for approximately 3 days, very light and then just spotting. Previously was 11/2022 and then 02/2023. All women in her family had hysterectomies, secondary to cysts. No hx of malignancies. Acute change: yesterday L jaw pain radiating to ear and causing a sensitive, tender to touch spot on top of lateral L head; epicenter of pain is where her wisdom tooth was removed a while ago. Hurts to swallow, but no sore throat. No change in vision. Similar experience in February that resolved on its own in a few days. was recently diagnosed with throat CA. Stress has been increasing since December. States she has support of family and friends. ANMOL [place] NP [address] [place] [address], [phone], [facility] 07/22/2023 15:58:48 01/09/2024 text/html 01/09/24 -feels like she has a pimple in her ear, wears a headset in this ear every day for work -needs [facility] paperwork updated ANMOL SAL[place]AR NP [address] [place] [address], [phone], [facility] 01/09/2024 15:18:12 07/27/2024 text/html Risk Assessment AdultReported bypatient.Coronary Artery Disease Risk Assesment:No Family history of coronary artery disease; No personal history of diabetes; No history of peripheral vascular disease, AAA, or carotid disease; No personal history of coronary artery disease Breast Cancer Risk Assessment:No family history of breast cancer; No history of breast cancer or dcis Colon Cancer Risk:No personal history of colon cancer or polyps; No family history of colon polyps or cancer Lung Cancer Risk Assessment:Never smoked; No asbestos exposure Fracture Risk Assessment:No unexplained fracture Cognitive/Behavioral Risk Assessment:No personal history of mental illness; No family history of mental illness 07/27/24Wellness Visit -has been doing PT for right shoulder impingement and tendonitis of the right elbow and wrist -chronic back pain, manages with carisoprodol -wondering about perimenopausal symptoms, periods occurring every 3 months, taking laine pill-having vaginal dryness, has tried lubes which haven't helped-generally feeling more tired-decreased sex drive ANMOL SALAZAR NP [address] [place] [address], [phone], [facility] 07/27/2024 15:14:24 OBGyn Episode No OBEpisode recorded.
--- OUTSIDE RECORDS SUMMARY | 2024-09-14 08:33 | XMS_ITS | Encounter Summary ---
Author Organization [facility] Address [address] [address] Phone Care Team Providers Care Part Time Name Role Phone Cherelle Jeong WAFER POLISHING WORKER Unavailable Sindy Chua WAFER POLISHING WORKER Unavailable Shin Moreira MD Unavailable [phone] Jj Laughlin MD Unavailable [phone] Shin Moreira MD Primary Care Provider [phone] Encounter Details Date Type Department Care Team (Late st Contact Info) Description 04/17/2019 Transcribe Orders Virtual Department [address] [place] [address] Sonja Goel, WAFER POLISHING WORKER [address] [place] [address] Palpitations (Primary Dx) Social History Tobacco Use Types Packs/Day Years Used Date Smoking Tobacco: Never Assessed Comments Unknown Sex and Gender Information Value Date Recorded Sex Assigned at Not on file Legal Sex Female 9:31 PM EDT Gender Identity Not on file Sexual Orientation Not on file documented as of this encounter Plan of Treatment Not on file documented as of this encounter Visit Diagnoses Diagnosis Palpitations- Primary documented in this encounter Care Teams Part Time Relationship Specialty Start Date End Date Shin Moreira MD [address] [place] [phone] [email or web address] PCP - General Family Medicine 04/17/19 Cherelle Jeong NP [address] [address] Historical LMR Provider 12/15/16 2 Sindy Chua NP [address] [place] [address] Historical LMR Provider 12/15/16 2 Shin Moreira MD [address] [place] [phone] [email or web address] Historical LMR Provider 12/15/16 03/07/21 Jj Laughlin MD [address] [place] [address] [address] [place] [address] [email or web address] Historical LMR Provider 12/15/16 03/07/21 documented as of this encounter Additional Source Comments The information contained in this document represents components of the legal health record. It is not the complete legal health record.[facility]
[2024-09-14 10:32] LABS: Hemoglobin A1C 108.4880 umol/L; Total Hemoglobin (HGBA1C) 3771.9165 umol/L
[2024-09-14 10:53] LABS: Alanine Aminotransferase 15 U/L (0-31); Albumin Level 4.3 g/dL (3.5-5.0); Alkaline Phosphatase 58 U/L (39-117); Anion Gap 11 (12-20); Aspartate Amino Transferase 19 U/L (5-31); Blood Urea Nitrogen 18 mg/dL (9-16); Calcium 9.7 mg/dL (8.4-10.2); Carbon Dioxide 24 mmol/L (22-29); Chloride 110 mmol/L (96-108); Cholesterol 202 mg/dL (<200); Estimated Glomerular Filt Rate > 60; HDL Cholesterol 72 mg/dL (>40); Potassium 4.2 mmol/L (3.3-5.1); Sodium 141 mmol/L (135-145); Total Protein 6.9 g/dL (6.5-8.0); Triglycerides 67 mg/dL (<150)
[2024-09-17 08:57] LABS: Follicle Stimulating Hormone 39.3 mIU/mL
[2024-10-01 00:48] LABS: Estradiol Free 0.42 pg/mL; Estradiol, Ultrasensitive 19 pg/mL
== END 2024-09-14 08:29 | disposition home or self-care (01) ==
LOC: HO.HMGCLDS 08:28
PROVIDERS: PCP Nurse Practitioner Primary Care; Visit Provider Nurse Practitioner Primary Care
DX: Z00.00 Encounter for general adult medical examination without abnormal findings (principal); N95.1 Menopausal and female climacteric states; Z13.1 Encounter for screening for diabetes mellitus
CPT/HCPCS: 36415; 80053; 80061; 82670; 82681; 83001; 83002; 83036